=== PATIENT | male | born 1990 | race Caucasian/White ===

== ENCOUNTER 2017-01-08 15:36 | Emergency (ER) | payer SELFPAY ==
[2017-01-08] MEDS ORDERED: NS 1,000 ML IV ONE (16:11)
[2017-01-08] MEDS ORDERED: ONDANSETRON 4 MG/2 ML VIAL IVP ONE (16:11)
--- NOTE | 2017-01-08 16:15 | EDPHY ---
H & P Time Seen by Provider: 01/08/17 16:02 HPI/ROS: CHIEF COMPLAINT: Abdominal pain, vomiting HISTORY OF PRESENT ILLNESS: 26-year-old male presents to the emergency department by private vehicle with his mother complaining of abdominal pain and vomiting that began abruptly around 9 o'clock this morning. He has vomited " all day". He had a normal bowel movement earlier this morning. No back pain. No urinary symptoms. No chest pain or difficulty breathing. No reported trauma. He has never had pain like this in the past. He does have a history of substance abuse although has been clean from cocaine for a few months. His last use of methamphetamines was last week. He does drink alcohol and does smoke marijuana. No chest pain or difficulty breathing. REVIEW OF SYSTEMS: Constitutional: No fever, no chills. Eyes: No double or blurry vision. ENT: No sore throat. Respiratory: No cough, no shortness of breath. Cardiac: No chest pain. Gastrointestinal: Abdominal pain, vomiting. No diarrhea. Genitourinary: No dysuria. Musculoskeletal: No neck or back pain. Skin: No rashes. Neurological: No headache. Past Medical/Surgical History: Substance abuse Social History: Single Smoking Status: Never smoked Physical Exam: General Appearance: Alert, moderate distress. Patient was initially found lying prone, moaning in pain Eyes: Pupils equal and round. Extraocular motions are all intact. ENT: Mouth: Mucous membranes moist. Respiratory: No wheezing, rhonchi, or rales, lungs are clear to auscultation. Cardiovascular: Regular rate and rhythm. Gastrointestinal: Abdomen is soft. He has diffuse tenderness with palpation however specially tender in the epigastric area. There is no rebound, guarding or masses noted. Bowel sounds are present. No CVA tenderness bilaterally. Neurological: Alert and oriented x 3, cranial nerves II through XII grossly intact Skin: Warm and dry, no rashes. Musculoskeletal: Nontender to palpate along the cervical, thoracic or lumbar spine. Neck is supple. Extremities: Full range of motion and no peripheral edema. Psychiatric: Patient is oriented X 3, there is no agitation. Constitutional: Initial Vital Signs Temperature (C) 36.3 C 01/08/17 15:39 Heart Rate 56 L 01/08/17 15:39 Respiratory Rate 22 H 01/08/17 15:39 Blood Pressure 125/87 H 01/08/17 15:39 O2 Sat (%) 94 01/08/17 15:39 O2 Delivery Mode Room Air Allergies/Adverse Reactions: No Known Allergies Allergy (Unverified 01/08/17 15:37) Home Medications: Medication Instructions Recorded Antacid 01/08/17 Medical Decision Making ED Course/Re-evaluation: 26-year-old male presents to the emergency department with multiple episodes of vomiting and diffuse abdominal pain. His laboratory studies were unremarkable. Given his continued discomfort with normal LFTs and lipase, I was concerned about possible obstruction. I discussed the pros and cons of CT imaging of the abdomen and pelvis with IV contrast including radiation exposure the patient agrees with CT scan. CT scan reveals evidence of gastroenteritis. He has a normal appendix. No evidence of free fluid or free air. Patient was given IV Toradol as well as IV normal saline and given oral Bentyl for pain relief. He was tolerating p.o. fluids and will be discharged home with his mother at bedside. Differential Diagnosis: Including but not limited to gastroenteritis, gastritis, GERD, peptic ulcer disease, cholecystitis, cholelithiasis, withdrawal - Data Points Laboratory Results: Laboratory Results 01/08/17 16:10 01/08/17 16:10 Medications Given: Discontinued Medications Dicyclomine HCl (Bentyl) 20 mg PO EDNOW ONE Stop: 01/08/17 18:31 Last Admin: 01/08/17 18:36 Dose: 20 mg Sodium Chloride (Ns) 1,000 mls @ 0 mls/hr IV ONCE ONE PRN Reason: Wide Open Stop: 01/08/17 16:12 Last Admin: 01/08/17 16:45 Dose: 1,000 mls Ketorolac Tromethamine (Toradol) 30 mg IVP EDNOW ONE Stop: 01/08/17 17:51 Last Admin: 01/08/17 17:54 Dose: 30 mg Ondansetron HCl (Zofran) 4 mg IVP EDNOW ONE Stop: 01/08/17 16:12 Last Admin: 01/08/17 16:45 Dose: 4 mg Departure - Departure Disposition: Home, Routine, Self-Care Clinical Impression: Acute gastroenteritis Abdominal pain Qualifiers: Abdominal location: generalized Qualified Code(s): R10.84 - Generalized abdominal pain Condition: Good Instructions: Gastroenteritis (ED), Acute Nausea and Vomiting (ED) Additional Instructions: Abdominal Pain: Return to the Emergency Department immediately for increasing pain, fever, vomiting, or if not completely better in 8-12 hours. Referrals: Jovanni Lee MD [Medical Doctor] - As per Instructions
[2017-01-08 16:20] LABS: % IMMATURE GRANULYOCYTES 0.3 % (0.0-1.1); ABSOLUTE IMMATURE GRANULOCYTES 0.03 10^3/uL (0.00-0.10); ADD DIFF? NO; ADD MORPH? NO; ADD SCAN? NO; ATYPICAL LYMPHOCYTE FLAG 0 (0-99); FRAGMENT RBC FLAG 0 (0-99); HEMATOCRIT 44.9 % (40.0-51.0); LEFT SHIFT FLG 0 (0-99); LIPEMIA HEMOLYSIS FLAG 80 (0-99); MEAN CELL HEMOGLOBIN 29.9 pg (27.9-34.1); MEAN CELL HEMOGLOBIN CONCENTR. 33.4 g/dL (32.4-36.7); MEAN CELL VOLUME 89.6 fL (81.5-99.8); PLATELET CLUMPS FLAG 10 (0-99); PLATELET COUNT 232 10^3/uL (150-400); RED BLOOD CELL COUNT 5.01 10^6/uL (4.40-6.38); RED CELL DISTRIBUTION WIDTH 13.7 % (11.5-15.2)
[2017-01-08 16:49] LABS: ALANINE AMINOTRANSFERASE 45 IU/L (21-72); ALBUMIN 4.7 g/dL (3.5-5.0); ALKALINE PHOSPHATASE 106 IU/L (38-126); ANION GAP 15 mEq/L (8-16); ASPARTATE AMINOTRANSFERASE 33 IU/L (17-59); BILIRUBIN,TOTAL 0.6 mg/dL (0.1-1.4); BILIRUBIN-CONJUGATED 0.3 mg/dL (0.0-0.5); BILIRUBIN-UNCONJUGATED 0.3 mg/dL (0.0-1.1); CALCIUM 9.7 mg/dL (8.5-10.4); CARBON DIOXIDE 25 mEq/l (22-31); CHLORIDE 100 mEq/L (97-110); CREATININE 0.9 mg/dL (0.7-1.3); GLOMERULAR FILTRATION RATE > 60; GLUCOSE 107 mg/dL (70-100); POTASSIUM 3.8 mEq/L (3.5-5.2); SODIUM 140 mEq/L (134-144); TOTAL PROTEIN 7.8 g/dL (6.3-8.2)
[2017-01-08] MEDS ORDERED: IOPAMIDOL (ISOVUE-300) 100 ML BTL ONE (17:13)
[2017-01-08] MEDS ORDERED: KETOROLAC 30 MG/1 ML SDV IVP ONE (17:50)
[2017-01-08 17:57] VITALS: TEMP 97.9
[2017-01-08] MEDS ORDERED: DICYCLOMINE 10 MG CAP PO ONE (18:30)
[2017-01-08 18:32] VITALS: BP 132/94; PULSE 74; RESP 16; O2SAT 99
== END 2017-01-08 19:11 | disposition home or self-care (01) ==
DX: K52.9 Noninfective gastroenteritis and colitis, unspecified (principal)
CPT/HCPCS: 96374; J1885; J2405; Q9967

== ENCOUNTER 2017-02-20 00:36 | Emergency (ER) | payer OTHER ==
[2017-02-20 00:49] VITALS: RESP 18; TEMP 98.2
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
[2017-02-20 03:09] VITALS: O2SAT 98
[2017-02-20 03:10] VITALS: BP 140/80; PULSE 75
== END 2017-02-20 03:11 | disposition home or self-care (01) ==
DX: S69.91XA Unspecified injury of right wrist, hand and finger(s), initial encounter (principal); V49.49XA Driver injured in collision with other motor vehicles in traffic accident, initial encounter; Y92.410 Unspecified street and highway as the place of occurrence of the external cause; Y99.8 Other external cause status; Y93.89 Activity, other specified